=== PATIENT | female | born 1975 | race American Indian/Alaskan Native ===

== ENCOUNTER 2019-08-31 12:18 | Emergency (ER) | payer MEDICAID ==
[2019-08-31 12:56] VITALS: BP 120/72
--- NOTE | 2019-08-31 14:36 | Event Note ---
ED Screening Note Date of service: 08/31/19 Time: 14:33 ED Screening Note: This initial assessment/diagnostic orders/clinical plan/treatment(s) is/are subject to change based on patients health status, clinical progression and re- assessment by fellow clinical providers in the ED. Further treatment and workup at subsequent clinical providers discretion. Patient/guardian urged not to elope from the ED as their condition may be serious if not clinically assessed and managed. Initial orders include: 43yo F states that she has abdominal pain and vaginal bleeding x 2 days. She states that she had not yet established care with an OBGYN, but was told that she was 2 weeks ago.
[2019-08-31 16:25] LABS: Hematocrit 40.4 % (30.3-42.9); Hemoglobin 13.7 gm/dl (10.1-14.3); Mean Corpuscular HGB Conc 34 % (30-34); Mean Corpuscular Volume 94 fl (79-97); Platelet Count 221 K/mm3 (140-440); Red Cell Distribution Width 12.8 % (13.2-15.2)
[2019-08-31 16:49] LABS: Alanine Aminotransferase 11 units/L (7-56); Albumin 4.2 g/dL (3.9-5); BUN/Creatinine Ratio 16; Blood Urea Nitrogen 8 mg/dL (7-17); Hemolysis Index 8
--- NOTE | 2019-08-31 18:57 | Ultrasound Report ---
ULTRASOUND OBSTETRIC Indication: bleeding abdominal pain Findings: There is a single, living intrauterine . [place]-rump length = 1.86 cm = 8 weeks, 3 day(s). heart rate is 159 beats per minute. There are small bilateral ovarian cysts. There is a 1.9 cm simple cyst in the right ovary and a 1.7 c m complex cyst in the left ovary.. There is minimal free fluid. Impression: Single, living intrauterine with estimated sonographic age of 8 weeks, 3 day(s). Signer Name: Augie Carbone MD Signed: 08/31/2019 6:53 PM Workstation Name: [id number]
[2019-08-31 20:16] LABS: Bilirubin,Urine NEG (Negative); Blood,Urine NEG (Negative); Color,Urine Yellow (Yellow); Mucus,Urine FEW /HPF; Protein,Urine <15 mg/dL mg/dL (Negative); WBC,Urine < 1.0 /HPF (0.0-6.0)
--- NOTE | 2019-08-31 20:18 | Emergency Department Report ---
ED Female HPI - General Chief complaint: Vaginal Bleeding Stated complaint: VOMITING/PREG SPOTTING Time Seen by Provider: 08/31/19 14:30 Source: patient Mode of arrival: Ambulatory Limitations: No Limitations - Related Data Previous Rx's Medication Instructions Recorded Last Taken Type Vit-Fe Fumar-FA [ 1 tab PO QDAY 30 Days #30 tablet 08/31/19 Unknown Rx Vitamin] Allergies Allergy/AdvReac Type Severity Reaction Status Date / Time No Known Allergies Allergy Unverified 08/31/19 19:59 ED Review of Systems ROS: Stated complaint: VOMITING/PREG SPOTTING Other details as noted in HPI ED Past Medical Hx - Past Medical History Previous Medical History?: No - Surgical History Past Surgical History?: No - Medications Home Medications: Home Medications Medication Instructions Recorded Confirmed Last Taken Type Vit-Fe Fumar-FA [ 1 tab PO QDAY 30 Days #30 tablet 08/31/19 Unknown Rx Vitamin] ED Physical Exam - General Limitations: No Limitations ED Course Vital Signs 08/31/19 12:55 Temperature 97.9 F Pulse Rate 88 Respiratory 16 Rate Blood Pressure 120/72 [Right] O2 Sat by Pulse 98 Oximetry - Reevaluation(s) Reevaluation #1: 08/31/19 21:12 Patient is 43-year-old female here for vaginal bleed that occurred x1 which was 1 week ago. She is not having any vaginal bleed at present. She reports that she is having abdominal cramp. She has been stable throughout ED course. ED Medical Decision Making - Lab Data Result diagrams: 08/31/19 15:43 08/31/19 15:43 Lab Results 08/31/19 08/31/19 08/31/19 Range/Units 15:43 15:43 15:43 WBC 4.6 (4.5-11.0) K/mm3 RBC 4.30 (3.65-5.03) M/mm3 Hgb 13.7 (10.1-14.3) gm/dl Hct 40.4 (30.3-42.9) % MCV 94 (79-97) fl MCH 32 (28-32) pg MCHC 34 (30-34) % RDW 12.8 L (13.2-15.2) % Plt Count 221 (140-440) K/mm3 Sodium 135 L (137-145) mmol/L Potassium 3.8 (3.6-5.0) mmol/L Chloride 100.6 (98-107) mmol/L Carbon Dioxide 21 L (22-30) mmol/L Anion Gap 17 mmol/L BUN 8 (7-17) mg/dL Creatinine 0.5 L (0.7-1.2) mg/dL Estimated GFR > 60 ml/min BUN/Creatinine Ratio 16 % Glucose 86 (65-100) mg/dL Calcium 9.0 (8.4-10.2) mg/dL Total Bilirubin 0.20 (0.1-1.2) mg/dL AST 14 (5-40) units/L ALT 11 (7-56) units/L Alkaline Phosphatase 57 (35-129) units/L Total Protein 7.5 (6.3-8.2) g/dL Albumin 4.2 (3.9-5) g/dL Albumin/Globulin Ratio 1.3 % HCG, Qual Positive (Negative) HCG, Quant (0-4) mIU/mL Urine Color (Yellow) Urine Turbidity (Clear) Urine pH (5.0-7.0) Ur Specific [place] (1.003-1.030) Urine Protein (Negative) mg/dL Urine Glucose (UA) (Negative) mg/dL Urine Ketones (Negative) mg/dL Urine Blood (Negative) Urine Nitrite (Negative) Urine Bilirubin (Negative) Urine Urobilinogen (<2.0) mg/dL Ur Leukocyte Esterase (Negative) Urine WBC (Auto) (0.0-6.0) /HPF Urine RBC (Auto) (0.0-6.0) /HPF U Epithel Cells (Auto) (0-13.0) /HPF Urine Mucus /HPF Blood Type Antibody Screen 08/31/19 08/31/19 08/31/19 Range/Units 19:44 19:53 19:53 WBC (4.5-11.0) K/mm3 RBC (3.65-5.03) M/mm3 Hgb (10.1-14.3) gm/dl Hct (30.3-42.9) % MCV (79-97) fl MCH (28-32) pg MCHC (30-34) % RDW (13.2-15.2) % Plt Count (140-440) K/mm3 Sodium (137-145) mmol/L Potassium (3.6-5.0) mmol/L Chloride (98-107) mmol/L Carbon Dioxide (22-30) mmol/L Anion Gap mmol/L BUN (7-17) mg/dL Creatinine (0.7-1.2) mg/dL Estimated GFR ml/min BUN/Creatinine Ratio % Glucose (65-100) mg/dL Calcium (8.4-10.2) mg/dL Total Bilirubin (0.1-1.2) mg/dL AST (5-40) units/L ALT (7-56) units/L Alkaline Phosphatase (35-129) units/L Total Protein (6.3-8.2) g/dL Albumin (3.9-5) g/dL Albumin/Globulin Ratio % HCG, Qual (Negative) HCG, Quant [id number] H (0-4) mIU/mL Urine Color Yellow (Yellow) Urine Turbidity Clear (Clear) Urine pH 7.0 (5.0-7.0) Ur Specific [place] 1.018 (1.003-1.030) Urine Protein <15 mg/dl (Negative) mg/dL Urine Glucose (UA) Neg (Negative) mg/dL Urine Ketones Tr (Negative) mg/dL Urine Blood Neg (Negative) Urine Nitrite Neg (Negative) Urine Bilirubin Neg (Negative) Urine Urobilinogen 2.0 (<2.0) mg/dL Ur Leukocyte Esterase Neg (Negative) Urine WBC (Auto) < 1.0 (0.0-6.0) /HPF Urine RBC (Auto) 3.0 (0.0-6.0) /HPF U Epithel Cells (Auto) 1.0 (0-13.0) /HPF Urine Mucus Few /HPF Blood Type O POSITIVE Antibody Screen Negative - Radiology Data Radiology results: report reviewed Print Report Referring Physician:MICHA Boggs Name:AURA DIORPatient ID:[id number] of :[id number]:FemaleAccession:[id number] Date:[id number] Status:Finalized Findings [facility] [address] [place] [address] Ultrasound Report Signed Patient: AURA DIOR MR#: [id number] : 1975 Acct:[id number] Age/Sex: 43 / F ADM Date: 08/31/19 Loc: ED Attending Dr: Ordering Physician: MICHA TRINH PA-C Date of Service: 08/31/19 Procedure(s): US OB transvaginal Accession Number(s): [id number] cc: MICHA TRINH PA-C ULTRASOUND OBSTETRIC Indication: bleeding abdominal pain Findings: There is a single, living intrauterine . [place]-rump length = 1.86 cm = 8 weeks, 3 day(s). heart rate is 159 beats per minute. There are small bilateral ovarian cysts. There is a 1.9 cm simple cyst in the right ovary and a 1.7 cm complex cyst in the left ovary.. There is minimal free fluid. Impression: Single, living intrauterine with estimated sonographic age of 8 weeks, 3 day(s). Signer Name: Augie Carbone MD Signed: 08/31/2019 6:53 PM Workstation Name: [id number] Transcribed By: Dictated By: Augie Carbone MD Electronically Authenticated By: Augie Carbone MD Signed Date/Time: 08/31/191852 DD/ 50 TD/TT: - Medical Decision Making 43-year-old female here report that she had vaginal bleeding 1 week ago single episode. She is here for abdominal cramping at 8 weeks and 3 days per OB ultrasound. heart tone is at 159 bpm. Physical exam is normal. Pelvic exam with normal findings. Laboratory results is stable to include hCG quantitative. I discussed diagnosis, laboratory and ultrasound report with patient and inform her that she needs to start care at [facility] along with taking vitamin and she voiced understanding. Vital signs stable she is afebrile and discharged home with prescription for vitamin. - Differential Diagnosis Threatened miscarriage, ectopic , UTI Critical care attestation.: If time is entered above; I have spent that time in minutes in the direct care of this critically ill patient, excluding procedure time. ED Disposition Clinical Impression: Threatened miscarriage in early Abdominal pain during Qualifiers: Trimester: first trimester Qualified Code(s): O26.891 - Other specified related conditions, first trimester; R10.9 - Unspecified abdominal pain Disposition: - TO HOME OR SELFCARE Is pt being admited?: No Does the pt Need Aspirin: No Condition: Stable Instructions: Abdominal Pain in (ED), Threatened Miscarriage (ED) Additional Instructions: Please follow-up with the [facility] in 1 to 2 days If symptoms worsens, please return to the emergency room Increase your fluid intake Start care at [facility] Start taking vitamin OTC [facility]: [facility] [Primary Care Provider] - 09/01/19
== END 2019-08-31 21:26 | disposition home or self-care (01) ==
LOC: ED 12:18
DX: O20.0 Threatened abortion (principal); Z3A.08 8 weeks gestation of pregnancy
CPT/HCPCS: 36415; 76817; 80053; 81001; 84702; 84703; 85027; 86850; 86900; 86901; 99284